=== PATIENT | male | born 1950 ===

== ENCOUNTER 2021-03-04 06:40 | Day surgery (SDC) | payer OTHER ==
[~2021-03-04 06:40] MED LIST: LIPITOR20 MG PO; NORVASC2.5 M1 PO; SYNTHROID125 MCG PO
== END 2021-03-04 13:15 | disposition home or self-care (01) ==
LOC: CIR.AMB 06:40
PROVIDERS: ATTEND Otolaryngology
DX: H68.103 Unspecified obstruction of Eustachian tube, bilateral (principal); H90.11 Conductive hearing loss, unilateral, right ear, with unrestricted hearing on the contralateral side; H90.12 Conductive hearing loss, unilateral, left ear, with unrestricted hearing on the contralateral side; H90.0 Conductive hearing loss, bilateral; Z20.822 Contact with and (suspected) exposure to COVID-19